=== PATIENT | female | born 1985 | race Caucasian/White ===

== ENCOUNTER 2021-11-16 17:15 | Emergency (ER) | payer SELFPAY ==
[2021-11-16 17:47] VITALS: BP 129/78; PULSE 86; TEMP 98.9; BMI 26.0
== END 2021-11-16 18:59 | disposition home or self-care (01) ==
LOC: FER 17:15
DX: R05.1 Acute cough (principal)
CPT/HCPCS: 0241U-QW; 71045-TC-FY; 99284-25